=== PATIENT | female | born 1990 | race African-American/Black ===

== ENCOUNTER 2019-11-19 22:44 | Emergency (ER) | payer OTHER ==
[~2019-11-19] VITALS: Ht 167.6 cm; Wt 163.7 kg
[2019-11-19 22:53] VITALS: BP 156/94
== END 2019-11-19 23:30 | disposition home or self-care (01) ==
LOC: ED 23:20
DX: K08.89 Other specified disorders of teeth and supporting structures (principal)
CPT/HCPCS: 99283